=== PATIENT | male | born 1985 | race Caucasian/White ===

== ENCOUNTER 2017-03-20 15:10 | Day surgery (SDC) | payer OTHER ==
[2017-03-20 15:42] VITALS: BP 151/89; PULSE 64; RESP 20; TEMP 98.3; O2SAT 95
--- NOTE | 2017-03-20 17:23 | RADRPT ---
EXAM DATE/TIME: 03/20/2017 00:00 [facility] COMPARISON : No previous studies available for comparison. INDICATIONS : consult for varicocele treatment OBJECTIVE: Temperature: 98.3 Heart Rate: 64 Blood Pressure: 151/89 Respiratory: 18 Oximetry: 95 PNEUMONIA VACCINE: YES NO HISTORY OF PRESENT ILLNESS: Abundio is a very pleasant 32-year-old male who is kindly referred for evaluation of possible spermatic vein embolization. He reports waxing and waning symptoms of testicular swelling and pain ranging fro m 4/10 to 6-7/10. Currently his symptoms have decreased with pain in the lower range of this scale. R ecent ultrasound examination demonstrated prominent left sided varicoceles. Furthermore, he has ferti lity concerns and would like to have children at some point. PAST MEDICAL HISTORY : 1. varicocele 2. central serous retinopathy 3. Hypercholesterolemia. PAST SURGICAL HISTORY : 1. torsion of the appendix testicles SOCIAL HISTORY : ALLERGIES: 1. Sulfa 2. codeine MEDICATIONS: 1. simvastatin 40 mg q.d. IMAGING STUDIES: Ultrasound examination dated 01/02/2017 was reviewed. This demonstrates slight asymmetrical testicular size with a smaller left testicle. There are prominent left sided varicocele including a varix which extends to the substance of the left testicle. ASSESSMENT: 31-year-old male with history of waxing and waning left testicular pain and swelling secondary to pro minent left-sided varicoceles with interest in maintaining fertility. He is an excellent candidate fo r spermatic vein embolization . Spermatic vein embolization procedure was explained in detail and all risks and benefits reviewed. Al l questions were answered. This included discussion regarding uncertainty with increased testicular p ain and potential testicular infarction given the unusual associated testicular varix. PLAN: Tentative plan for left spermatic vein embolization TIME SPENT: 20 minutes. Herbert Marquez MD on March 20, 2017 at 16:42 Board Certified Radiologist. This report was verified electronically.
== END 2017-03-20 16:15 | disposition home or self-care (01) ==
LOC: HROP 15:10
PROVIDERS: ATTEND Urology
DX: I86.1 Scrotal varices (principal); H35.719 Central serous chorioretinopathy, unspecified eye; E78.00 Pure hypercholesterolemia, unspecified

== ENCOUNTER → 2017-03-20 | Outpatient (CLI) | payer OTHER ==
[2017-03-20 15:42] LABS: HEMATOCRIT 41.8 % (39.0-51.0); MEAN CELL VOLUME 86.1 FL (80.0-100.0); MEAN CORPUSCULAR HEMOGLOBIN 30.6 PG (27.0-34.0); MEAN CORPUSCULAR HGB CONC 35.5 % (32.0-36.0); PLATELET COUNT 240 TH/MM3 (150-450); RED BLOOD COUNT 4.86 MIL/MM3 (4.50-5.90); RED CELL DISTRIBUTION WIDTH 12.9 % (11.6-17.2); REVIEW FLAG FINAL; WHITE BLOOD COUNT 5.5 TH/MM3 (4.0-11.0)
[2017-03-20 15:57] LABS: APTT (PATIENT) 28.2 SEC (24.3-30.1); INTERNATIONAL NORMALIZED RATIO 1.1 RATIO; PROTHROMBIN TIME - PATIENT 11.8 SEC (9.8-11.6)
== END ==
LOC: CLAB 15:08
PROVIDERS: ATTEND Urology
DX: I86.1 Scrotal varices (principal)
CPT/HCPCS: 36415; 85027; 85610; 85730

== ENCOUNTER 2017-04-14 07:36 | Day surgery (SDC) | payer OTHER ==
[~2017-04-14] VITALS: Ht 175.3 cm; Wt 98.6 kg
[2017-04-14] MEDS ORDERED: SODIUM CHLOR 0.9% 1000 ML INJ 1,000 ML IV SCH (08:00)
[2017-04-14] MEDS ORDERED: FENO160T PO (08:02)
[2017-04-14] MEDS ORDERED: SIMV40TA PO (08:03)
[2017-04-14 08:06] VITALS: BP 130/84; PULSE 63; RESP 20; TEMP 97.8; O2SAT 99
[2017-04-14] MEDS ORDERED: ceFAZolin 2 GM PREMIX 50 ML IV SCH (08:15)
[2017-04-14 08:36] LABS: AUTOMATED NEUTROPHIL # 2.8 TH/MM3 (1.8-7.7); BASOPHIL # 0.1 TH/MM3 (0-0.2); EOSINOPHIL # 0.3 TH/MM3 (0-0.4); EOSINOPHIL % 6.1 % (0.0-4.0); HEMATOCRIT 42.6 % (39.0-51.0); HEMO FLAGS DIFF FINAL; LYMPH % 32.9 % (9.0-44.0); LYMPHOCYTE # 1.8 TH/MM3 (1.0-4.8); MEAN CELL VOLUME 88.2 FL (80.0-100.0); MEAN CORPUSCULAR HEMOGLOBIN 30.8 PG (27.0-34.0); MEAN CORPUSCULAR HGB CONC 34.9 % (32.0-36.0); MONO % 9.1 % (0.0-8.0); NEUT % 50.9 % (16.0-70.0); PLATELET COUNT 188 TH/MM3 (150-450); RED BLOOD COUNT 4.83 MIL/MM3 (4.50-5.90); RED CELL DISTRIBUTION WIDTH 12.8 % (11.6-17.2); WHITE BLOOD COUNT 5.4 TH/MM3 (4.0-11.0)
[2017-04-14 08:53] LABS: INTERNATIONAL NORMALIZED RATIO 1.1 RATIO; PROTHROMBIN TIME - PATIENT 11.8 SEC (9.8-11.6)
[2017-04-14 09:03] LABS: POTASSIUM 3.9 MEQ/L (3.5-5.1)
[2017-04-14] MEDS ORDERED: MIDAZOLAM HCL 5 MG/5 ML VIAL ONE (09:24)
[2017-04-14] MEDS ORDERED: fentaNYL CITRATE 250 MCG/5 ML AMP ONE (09:24)
[2017-04-14 10:30] VITALS: BP 121/80; PULSE 57; RESP 17; TEMP 98.2; O2SAT 97
--- NOTE | 2017-04-14 10:44 | PD.RAD ---
Post Procedure Progress Note Pre Procedure Diagnosis: (1) Left varicocele Post Procedure Diagnosis: (1) Left varicocele Procedure Date: Apr 14, 2017 Supervising Radiologist: Herbert Marquez Proceduralist/Assist: Pippa Cui RT(R), RT Leonila(R) Anesthesia: Conscious Sedation Plan of Activity Patient to Unit: [facility] Patient Condition: Good Additional Comments: Left gonadal vein embolization with 10 and 12mm coils. See PACS Report for procedural detail/treatment Herbert Marquez MD Apr 14, 2017 10:43
[2017-04-14 10:45] VITALS: BP 116/74; PULSE 55; RESP 18; O2SAT 95
[2017-04-14] MEDS ORDERED: ONDANSETRON HCL 4 MG/2 ML VIAL IV PRN (10:45)
[2017-04-14] MEDS ORDERED: IOHEXOL 350 MG/ML 100 ML BTL (for RAD DIAG) IV ONE (10:47)
[2017-04-14 11:15] VITALS: BP 108/79; PULSE 56; RESP 17; O2SAT 96
--- NOTE | 2017-04-14 11:39 | RADRPT ---
EXAM DATE/TIME: 04/14/2017 09:14 [facility] COMPARISON: No previous studies available for comparison. INDICATIONS : 32-year-old male with history of testicular swelling and pain secondary to prominent left-sided varic oceles. Patient was evaluated in interventional radiology clinic and now presents for spermatic vein embolization. MEDICAL HISTORY : 1. Varicocele 2. central serous retinopathy 3. hypercholesterolemia SURGICAL HISTORY : 1. torsion of the appendix testicles. ENCOUNTER: Initial ACUITY: 3 months PAIN SCORE: 0/10 FLUORO TIME: 7.8 minutes IMAGE SERIES: 6 ACCESS SITE: Right Jugular vein SEDATION TIME: 30 minutes CONTRAST: 1.) 60 cc Omnipaque (iohexol) 350 MEDICATION(S): 1.) 4 mg midazolam (Versed) IV 2.) 200 mcg fentanyl (Sublimaze) IV Prophylactic antibiotics were administered with appropriate pre-procedure timing. DEVICE(S): 1.) Left vein gonadal embolic coil(s) 10mm x40 cm interlock 2.) Left vein gonadal embolic coil(s) 12mm x 40 cm interlock 3.) Left vein gonadal embolic coil(s) 10 mm x 20 cm interlock 4.) Left vein gonadal embolic coil(s) 10mm x 25 cm interlock PROCEDURE : 1. Ultrasound-guided puncture of the access site. 2. Conscious sedation with continuous EKG and Oximetry monitoring. 3. Selective catheter placement in the left renal vein with sonography 4. Subselective catheter placement in the distal left gonadal vein with subsequent angiography 5. Coil embolization of the left gonadal vein from just above the inguinal ligament to the confluenc e of the renal vein The risks, benefits and alternatives to the procedure were explained and verbal and written consent w as obtained. The site was prepped in sterile fashion. Full sterile technique was used, including ca p, mask, sterile gloves and gown and a large sterile sheet. Hand hygiene and 2% chlorhexidine and/or betadine/alcohol prep was utilized per protocol for cutaneous antisepsis. The skin and subcutaneous tissues were infiltrated with local anesthetic solution. With ultrasound and fluoroscopic guidance the right internal jugular vein was punctured and a 5 Frenc h sheath was placed in the central SVC. 5 [place] Berenstein catheter was used to select the left alem l vein. Venography was then performed demonstrating an enlarged left spermatic vein with reflux to th e mid abdominal level. Catheter was then advanced into the left spermatic vein and venography was per formed in the distal spermatic vein demonstrating large left testicular varices with a dominant singl e outflow vein extending to the renal vein. The left spermatic vein was therefore embolized with Inte rlock coils from just above the level of the inguinal ligament to the confluence with the left renal vein. Postprocedure venography in the left renal vein demonstrated stasis of flow in the left spermat ic vein with well positioned central coil at the renal vein confluence. The puncture site was closed with manual pressure and hemostasis was obtained. The patient tolerated the procedure well and there were no complications. Conscious sedation was performed with the prescribed dosages and duration as above in the presence of an independent trained radiology nurse to assist in the monitoring of the patient. EKG and oximetry remained stable throughout the procedure. CONCLUSION: 1. Uneventful coil embolization of the left spermatic vein for treatment of painful varicoceles. Herbert Marquez MD on April 14, 2017 at 11:26 Board Certified Radiologist. This report was verified electronically.
[2017-04-14 11:45] VITALS: BP 102/63; PULSE 56; RESP 17; O2SAT 96
[2017-04-14] MEDS ORDERED: KETOROLAC TROMETHAMINE 30 MG/ML (IVP) VIAL IVP SCH (12:00)
[2017-04-14 12:15] VITALS: BP 112/64; PULSE 57; RESP 19; O2SAT 97
== END 2017-04-14 12:50 | disposition home or self-care (01) ==
LOC: HROP 07:36 → HRIP 07:38 → HROP 12:50
PROVIDERS: ATTEND Urology
DX: I86.1 Scrotal varices (principal); E78.00 Pure hypercholesterolemia, unspecified; H35.719 Central serous chorioretinopathy, unspecified eye; Z01.812 Encounter for preprocedural laboratory examination
CPT/HCPCS: 36005; 37241; 75831; 76937; 80048; 85025; 85610; 85730; 99152; 99153; C1769; C1887; J0690; J1885; J2250; J3010; J7030; Q9967

== ENCOUNTER 2017-04-27 14:38 | Day surgery (SDC) | payer OTHER ==
[~2017-04-27 14:38] MED LIST: FENO160T PO; SIMV40TA PO
[2017-04-27 14:54] VITALS: BP 149/92; PULSE 81; RESP 16; TEMP 98.3; O2SAT 96
== END 2017-04-27 15:00 | disposition home or self-care (01) ==
LOC: HROP 14:38 → HRIP 14:38 → HROP 15:00
PROVIDERS: ATTEND Radiology Diagnostic Radiology
DX: I86.1 Scrotal varices (principal)
CPT/HCPCS: 99211; G0463